=== PATIENT | female | born 1970 | race Caucasian/White ===

== ENCOUNTER 2020-12-17 17:33 | Emergency (ER) | payer OTHER ==
[~2020-12-17] VITALS: Ht 160 cm; Wt 59.9 kg
[~2020-12-17 17:33] MED LIST: ADVAIR HFA115 MCG/21 INH; CELEXA10 MG PO; CIPROFLOXACIN500 M1 PO; FLAGYL500 MG PO; FLONASE 0.05%50 MCG NASAL; NORCO 5-325 TA1 EACH PO; SINGULAIR 10 MG10 M1 PO; XANAX 0.5 MG0.5 MG PO
[2020-12-17 17:37] VITALS: BP 162/109
[2020-12-17] MEDS ORDERED: DOXYCYCLINE 10100 MG PO (17:56)
== END 2020-12-17 18:11 | disposition home or self-care (01) ==
LOC: ER 17:33
DX: S00.81XA Abrasion of other part of head, initial encounter (principal); S61.203A Unspecified open wound of left middle finger without damage to nail, initial encounter; F41.9 Anxiety disorder, unspecified; J45.909 Unspecified asthma, uncomplicated; F17.210 Nicotine dependence, cigarettes, uncomplicated; Z98.890 Other specified postprocedural states; Z90.49 Acquired absence of other specified parts of digestive tract; Z79.2 Long term (current) use of antibiotics; Z79.899 Other long term (current) drug therapy; Z88.1 Allergy status to other antibiotic agents; X58.XXXA Exposure to other specified factors, initial encounter; Y93.89 Activity, other specified; Y92.89 Other specified places as the place of occurrence of the external cause; Y99.8 Other external cause status

== ENCOUNTER → 2021-05-28 | Outpatient (CLI) | payer OTHER ==
[~2021-05-28] MED LIST changes: +DOXYCYCLINE 10100 MG PO
== END ==
LOC: CAT 08:51
PROVIDERS: ATTEND Nurse Practitioner
DX: Z13.6 Encounter for screening for cardiovascular disorders (principal); I25.10 Atherosclerotic heart disease of native coronary artery without angina pectoris; E78.00 Pure hypercholesterolemia, unspecified

== ENCOUNTER → 2021-07-10 | Outpatient (CLI) | payer BC | LOC: SJCVCIMAG 06:38 | PROVIDERS: ATTEND Internal Medicine | DX: I10 Essential (primary) hypertension (principal); Z13.220 Encounter for screening for lipoid disorders; F41.9 Anxiety disorder, unspecified; E78.00 Pure hypercholesterolemia, unspecified; F17.200 Nicotine dependence, unspecified, uncomplicated; F10.20 Alcohol dependence, uncomplicated; F12.20 Cannabis dependence, uncomplicated; Z98.890 Other specified postprocedural states; Z79.899 Other long term (current) drug therapy ==